=== PATIENT | female | born 1965 ===

== ENCOUNTER 2017-07-22 11:08 | Outpatient (CLI) | payer OTHER ==
--- NOTE | 2017-07-22 16:23 | Ultrasound Report ---
ABDOMINAL ULTRASOUND: 07/22/17 11:08:00 CLINICAL: Abdominal pain. FINDINGS: High-resolution ultrasound demonstrates a normal uterus with normal size, contour and echogenicity. No liver mass. Normal hepatic vasculature and inferior vena cava. The gallbladder is contracted and contains several shadowing calculi. The gallbladder wall measures 6.0 mm thick. No pericholecystic fluid or gallbladder tenderness. The common bile duct measures 3.0 mm diameter. The pancreas is well imaged and normal. Normal abdominal aorta measuring 2.2 cm maximum. A normal spleen measures 12.0 x 5.4 x 5.6cm. Normal kidneys with normal echogenicity and normal non-dilated renal collecting systems and ureters. The right kidney measures 10.1 x 4.4 x 4.2cm. The left kidney measures 10.9 x 5.1 x 4.2cm. No renal mass or calculus. No ascites or mass. IMPRESSION: 1. Cholelithiasis with contracted gallbladder and no signs of acute cholecystitis. 2. No evidence of choledocholithiasis or pancreatitis.
== END 2017-07-22 11:09 | disposition home or self-care (01) ==
LOC: SPVWC 11:08
PROVIDERS: ATTEND Internal Medicine Gastroenterology
DX: K21.9 Gastro-esophageal reflux disease without esophagitis (principal); K80.20 Calculus of gallbladder without cholecystitis without obstruction
CPT/HCPCS: 76700